=== PATIENT | female | born 1985 | race Caucasian/White ===

== ENCOUNTER 2016-05-30 06:33 | Outpatient (CLI) ==
[2015-04-23 22:55] VITALS: BMI 30.7
--- NOTE | 2016-05-30 10:43 | STRESSECHO ---
Date of Test: 05/30/16 Reason for Exam: CHEST PAIN Ordering Physician: DAO GUILLEN Current Medications: NUVARING Physical Findings: S1, S2, NO S3 Resting EKG: SR/NO ACUTE CHANGES Target Heart Rate: 160/189 STAGE MPH/GRADE HEART RATE BPM BLOOD PRESSURE mmhg RHYTHM S-T SEGMENT +/- UP DOWN SYMPTOMS,COMMENTS At Rest 80 126/84 SR X NONE 1 1.7/10% 120 130/74 SR X NONE 2 2.5/12% 140 144/60 SR X NONE 3 3.4/14% 4 4.2/16% 5 5.0/18% Immediately after Durations of Exercise: 8:00 Maximum Heart Rate Reached: 162 Minutes Post Exercise: 3 Heart Rate: 110 INTERPRETATION: 98% OXYGEN SATURATION WITH EXERCISE ON ROOM AIR 1. NO EVIDENCE OF ISCHEMIA BY ST-T WAVE 2. NO CHEST PAIN OR CHEST DISCOMFORT 3. BLOOD PRESSURE RESPONSE: NORMAL 4. NO ARRHYTHMIAS NORMAL LEFT VENTRICULAR CONTRACTILITY--RESTING AND POST EXERCISE MTDD
--- NOTE | 2016-05-30 10:45 | ECHOSTRESS ---
Date of Exam: 05/30/16 Ordering Physician: DAO GUILLEN Reason for Echo: CHEST PAIN, STRESS TEST--NO ISCHEMIA M-Mode Normal Adult Results LV Dimensions Normal Adult Results AoV Opening excursions >1.6 LVEDD-base- 3.5-5.8 Ao root dimensions 2.0-3.7 LVESD-base- 3.1-4.6 L. Atrium dimensions 1.9-3.8 Post. Wall thickness 0.8-1.1 IV septum (thickness) 0.7-1.2 Post. Wall excursion 0.72-1.3 Septal motion Systolic motion R. Ventricular cavity 1.5-2.0 LVEF 60% Paradoxical septal wall motion 2-D: NORMAL LEFT VENTRICULAR CONTRACTILITY--RESTING AND POST EXERCISE M-MODE: MV: AV: TV: PV: CHAMBER SIZE: WALL MOTION: NORMAL LEFT VENTRICULAR CONTRACTILITY--RESTING AND POST EXERCISE PERICARDIUM: INTERPRETATION: 1. NORMAL LEFT VENTRICULAR CONTRACTILITY--RESTING AND POST EXERCISE MTDD
== END 2016-05-30 06:34 | disposition home or self-care (01) ==
LOC: CAR 06:33
PROVIDERS: ATTEND Family Medicine
DX: R07.9 Chest pain, unspecified (principal)

== ENCOUNTER 2016-09-25 14:27 | Emergency (ER) ==
[2016-09-25 14:41] VITALS: BP 156/89; TEMP 99.2; BMI 29.2
[2016-09-25] MEDS ORDERED: LIDOCAINE 1 % AMP 5 ML (SUTURES) IM STA (15:02)
[2016-09-25] MEDS ORDERED: TORADOL IM STA (15:02)
[2016-09-25] MEDS ORDERED: ROCEPHIN IM STA (15:02)
--- NOTE | 2016-09-25 15:16 | ED.PDOC ---
General ED Provider: Dr. TRUDY WOODARD Chief Complaint: Earache Stated Complaint: Rt Ear pain, drainage, on Amoxicillin, not helping. Time Seen by Physician: 15:14 Mode of Arrival: Walk-In Information Source: Patient Primary Care Provider: DAO GUILLEN Nursing and Triage Documentation Reviewed and Agree: Yes EENT Complaint Exam - Ear Complaint/Exam Symptoms Are: Still present Timing: Constant Initial Severity: Mild Current Severity: Moderate Character: Reports: Sharp pain, Dull pain Aggravating: Reports: None Alleviating: Reports: None Associated Signs and Symptoms: Reports: Ear swelling, Discharge. Denies: Ear trauma, Fever, Hearing loss, Bleeding, Sore throat, Headache, URI symptoms, Foreign body sensation, Rash, Pain to external ear, Pain to external face Ear Surgical History: None Vesicles to External Pinna: No Vesicles to Tragus: No TMJ Tenderness: None Mastoid Tenderness: None Tragal Tenderness: Right External Canal: Erythema, Tenderness Material in Canal: Present: Discharge Tympanic Membrane: Erythema Differential Diagnoses: Otitis Media Review of Systems - Review Of Systems Constitutional: Reports: No symptoms Eyes: Reports: No symptoms Ears, Nose, Mouth, Throat: Reports: Ear pain, Ear discharge Respiratory: Reports: No symptoms Cardiac: Reports: No symptoms GI: Reports: No symptoms : Reports: No symptoms Musculoskeletal: Reports: No symptoms Skin: Reports: No symptoms Neurological: Reports: No symptoms Endocrine: Reports: No symptoms Hematologic/Lymphatic: Reports: No symptoms All Other Systems: Reviewed and Negative Past Medical History - Past Medical History Previously Healthy: No Endocrine: Reports: None Cardiovascular: Reports: None Respiratory: Reports: None Hematological: Reports: None Gastrointestinal: Reports: None Genitourinary: Reports: None Neuro/Psych: Reports: None Musculoskeletal: Reports: None Cancer: Reports: None Last Menstrual Period: 3 weeks - Surgical History General Surgical History: Reports: Cholecystectomy, Tonsillectomy - Family History Family History: Reports: None - Social History Smoking Status: Current every day smoker, Heavy tobacco smoker Smoking Cessation Counseling Time: > 10 min Hx Substance Use: No Alcohol Screening: None Physical Exam - Physical Exam Appearance: Well-appearing, No pain distress, Well-nourished Eyes: JOSE MARIA, EOMI, Conjunctiva clear ENT: TMs Occluded Respiratory: Airway patent, Breath sounds clear, Breath sounds equal, Respirations nonlabored Cardiovascular: RRR, Pulses normal, No rub, No murmur GI/: Soft, Nontender, No masses, Bowel sounds normal, No Organomegaly Musculoskeletal: Normal strength, ROM intact, No edema, No calf tenderness Skin: Warm, Dry, Normal color Neurological: Sensation intact, Motor intact, Reflexes intact, Cranial nerves intact, Alert, Oriented Psychiatric: Affect appropriate, Mood appropriate Critical Care Note - Critical Care Note Total Time (mins): 0 Course - Course Orders, Labs, Meds: Orders Category Date Time Status Ceftriaxone Sodium [Rocephin] MEDS 09/25/16 15:02 Discontinued 1 gm IM ONCE STA Ketorolac Tromethamine [Toradol] MEDS 09/25/16 15:02 Discontinued 30 mg IM ONCE STA Lidocaine HCl/Pf [Lidocaine 1 % Amp 5 ml (Sutures)] MEDS 09/25/16 15:02 Discontinued 2.1 ml IM ONCE STA Medications Discontinued Medications Generic Name Dose Route Start Last Admin Trade Name Freq PRN Reason Stop Dose Admin Ceftriaxone Sodium 1 gm 09/25/16 15:02 Rocephin IM 09/25/16 15:03 ONCE STA Ketorolac Tromethamine 30 mg 09/25/16 15:02 Toradol IM 09/25/16 15:03 ONCE STA Lidocaine HCl 2.1 ml 09/25/16 15:02 Lidocaine 1 % Amp 5 Ml (Sutures) IM 09/25/16 15:03 ONCE STA Vital Signs: Temp Pulse Resp BP Pulse Ox 09/25/16 14:27 99.2 F 114 H 20 156/89 H 97 Departure - Departure Time of Disposition: 15:16 Disposition: HOME SELF-CARE Discharge Problem: Otitis media Qualifiers: Otitis media type: serous Chronicity: acute Laterality: right Recurrence: recurrent Qualifier Code: (H65.04) Acute serous otitis media, recurrent, right ear Instructions: Otitis Media (ED) Condition: Stable Pt referred to PMD for follow-up: Yes (ENT) Additional Instructions: stop augmentin Take medications with food needs f/u with PMD Prescriptions: Cephalexin [Keflex] 500 mg PO Q12HR #20 capsule Allergies/Adverse Reactions: Allergies No Known Drug Allergies Adverse Reaction (Verified 09/25/16 14:32) Home Medications: Ambulatory Orders Etonogestrel/Ethinyl Estradiol [Nuvaring Vaginal Ring] 1 each VG DIRECTED Cephalexin [Keflex] 500 mg PO Q12HR #20 capsule 09/25/16 Disposition Discussed With: Patient, Family
== END 2016-09-25 15:50 | disposition home or self-care (01) ==
LOC: ED 14:27
DX: H65.04 Acute serous otitis media, recurrent, right ear (principal); F17.210 Nicotine dependence, cigarettes, uncomplicated
CPT/HCPCS: 96372; 99282

== ENCOUNTER 2016-10-07 03:58 | Emergency (ER) ==
[2016-10-07 04:07] VITALS: BMI 28.3
--- NOTE | 2016-10-07 05:00 | DI ---
EXAM: Right ankle three views HISTORY: Injury COMPARISON: None. FINDINGS: There is no acute fracture or dislocation. The ankle mortise and talar dome are intact. The surrounding soft tissues are unremarkable. IMPRESSION: No acute findings
--- NOTE | 2016-10-07 05:03 | DI ---
EXAM: Right foot three views HISTORY: Trauma COMPARISON: None. FINDINGS: There is no acute fracture, dislocation or bony abnormality. The surrounding soft tissue s are unremarkable. IMPRESSION: No acute findings.
--- NOTE | 2016-10-07 05:10 | ED.PDOC ---
General ED Provider: Dr. SANTINO BAIRES Chief Complaint: Foot Pain/Injury Stated Complaint: Patient is a 31 year old female who states she dropped large rock on right foot. Has pain to whole top of foot. Top of foot slightly discolored and swollen and Is unable to bear weight Time Seen by Physician: 05:08 Mode of Arrival: Wheelchair Information Source: Patient Exam Limitations: No limitations Primary Care Provider: DAO GUILLEN Nursing and Triage Documentation Reviewed and Agree: Yes Musculoskeletal Complaint Exam - Ankle/Foot Complaint/Exam Location of Injury: Reports: Right, Ankle, Foot Mechanism of Injury: Reports: Trauma Onset/Duration: 7 hours Symptoms Are: Reports: Still present Onset of Pain: Reports: Immediate, Post accident Initial Severity: Moderate Current Severity: Severe Location: Reports: Diffuse Character: Reports: Aching, Throbbing Alleviating: Reports: Position Aggravating: Reports: Movement, Weight bearing, Prolonged standing Able to Bear Weight: No Associated Signs and Symptoms: Reports: Swelling, Bruising Related History: Denies: Similar episode, Occupational injury Gout Risk Factors: Reports: None Related Surgical History: Reports: None Lower Extremity Findings: Present: Swelling, Tenderness, Limited range of motion Achilles Tendon Abnormality: No Tenderness: Present: Midfoot Limited Range of Motion: Present: Inversion, Eversion, Dorsiflexion, Plantarflexion Ankle/Foot Picture: 1 - tenderness limited mobility Differential Diagnosis: Contusion, Closed Fracture, Sprain, Strain, Tendonitis Review of Systems - Review Of Systems Constitutional: Reports: No symptoms Eyes: Reports: No symptoms Ears, Nose, Mouth, Throat: Reports: No symptoms Respiratory: Reports: No symptoms Cardiac: Reports: No symptoms GI: Reports: No symptoms : Reports: No symptoms Musculoskeletal: Reports: Joint pain Skin: Reports: Bruising Neurological: Reports: No symptoms Endocrine: Reports: No symptoms Hematologic/Lymphatic: Reports: No symptoms All Other Systems: Reviewed and Negative Past Medical History - Past Medical History Previously Healthy: No Endocrine: Reports: DM 2 Cardiovascular: Reports: Hypertension Respiratory: Reports: None Hematological: Reports: None Gastrointestinal: Reports: None Genitourinary: Reports: None Neuro/Psych: Reports: Migraine, Anxiety Musculoskeletal: Reports: None Cancer: Reports: None Last Menstrual Period: 3-4 WEEKS AGO - Surgical History General Surgical History: Reports: Cholecystectomy, Tonsillectomy - Family History Family History: Reports: None - Social History Smoking Status: Current every day smoker, Heavy tobacco smoker Hx Substance Use: No Alcohol Screening: None - Immunizations Tetanus Shot up to Date: (2007) Physical Exam - Physical Exam Appearance: Ill-appearing, Well-nourished Ill-appearing: Mild Pain Distress: Severe Neck: Supple Respiratory: Airway patent, Breath sounds clear, Breath sounds equal, Respirations nonlabored Cardiovascular: RRR, Pulses normal, No rub, No murmur GI/: Soft, Nontender, No masses, Bowel sounds normal, No Organomegaly Musculoskeletal: Limited ROM (Right ankle ) Skin: Warm, Dry Neurological: Alert, Oriented Psychiatric: Anxious Interpretation - Radiology Interpretation Radiology Interpretation By: Radiologist Radiology Results: Negative Exam Interpreted: Other (Ankle and foot ) Critical Care Note - Critical Care Note Total Time (mins): 0 Course - Course Orders, Labs, Meds: Orders Category Date Time Status Ketorolac Tromethamine [Toradol] MEDS 10/07/16 05:33 Discontinued 60 mg IM ONCE STA ANKLE, RIGHT MIN 3 VIEWS Stat RADS 10/07/16 04:21 Completed FOOT, RIGHT 3 VIEWS Stat RADS 10/07/16 04:18 Completed Medications Discontinued Medications Generic Name Dose Route Start Last Admin Trade Name Freq PRN Reason Stop Dose Admin Ketorolac Tromethamine 60 mg 10/07/16 05:33 Toradol IM 10/07/16 05:34 ONCE STA Vital Signs: Temp Pulse Resp BP Pulse Ox 10/07/16 03:58 100 F H 110 H 20 142/92 H 99 Departure - Departure Time of Disposition: 05:15 Disposition: HOME SELF-CARE Discharge Problem: Injury of foot, Foot contusion Instructions: Foot Sprain (ED), Ankle Strain (ED) Condition: Fair Pt referred to PMD for follow-up: Yes Additional Instructions: Continue home Pain medications Follow up with PCP in 5 days. Rest for 2 days. Prescriptions: Ibuprofen [Motrin] 600 mg PO Q6H PRN #30 tablet PRN Reason: Analgesia Allergies/Adverse Reactions: Allergies No Known Drug Allergies Adverse Reaction (Verified 10/07/16 04:06) Home Medications: Ambulatory Orders Etonogestrel/Ethinyl Estradiol [Nuvaring Vaginal Ring] 1 each VG DIRECTED Hydrocodone Bit/Acetaminophen [[place] 7.5-325] 1 each PO Q8H PRN 10/07/16 Ibuprofen [Motrin] 600 mg PO Q6H PRN #30 tablet 10/07/16 Disposition Discussed With: Patient, Family
[2016-10-07] MEDS ORDERED: TORADOL IM STA (05:33)
[2016-10-07 06:08] VITALS: BP 120/73; TEMP 99.4
== END 2016-10-07 06:24 | disposition home or self-care (01) ==
LOC: ED 03:58
DX: S90.31XA Contusion of right foot, initial encounter (principal); W20.8XXA Other cause of strike by thrown, projected or falling object, initial encounter; F17.210 Nicotine dependence, cigarettes, uncomplicated
CPT/HCPCS: 96372; 99283

== ENCOUNTER → 2016-10-12 | Outpatient (POV) ==
[2016-10-07 04:07] VITALS: BMI 28.3
== END ==
LOC: OUTPT 00:01
PROVIDERS: ATTEND Otolaryngology
DX: H69.90 Unspecified Eustachian tube disorder, unspecified ear (principal)
CPT/HCPCS: 92557; 92567